=== PATIENT | male | born 1970 | race Hispanic/Latino ===

== ENCOUNTER 2025-01-17 15:17 | Emergency (ER) | payer OTHER ==
[~2025-01-17] VITALS: Ht 167.6 cm; Wt 90.7 kg
[2025-01-17] MEDS: TETANUS/DIPHTHERIA TOX ADULT 0.5 ML SYR IM ONE (15:50)
[2025-01-17 17:34] VITALS: PULSE 76; RESP 16; TEMP 97.8; O2SAT 100
== END 2025-01-17 17:58 | disposition home or self-care (01) ==
LOC: ER 15:37
DX: T22.652A Corrosion of second degree of left shoulder, initial encounter (principal); T22.612A Corrosion of second degree of left forearm, initial encounter; T20.67XA Corrosion of second degree of neck, initial encounter; T52.8X1A Toxic effect of other organic solvents, accidental (unintentional), initial encounter; Y99.0 Civilian activity done for income or pay
CPT/HCPCS: 90471; 90714; 99283